=== PATIENT | female | born 1995 | race Caucasian/White ===

== ENCOUNTER 2016-09-07 08:04 | Emergency (ER) | payer OTHER ==
[~2016-09-07 08:04] MED LIST: NO MEDICATIONS; ZOFRAN ODT4 MG PO
[2016-09-07 08:15] LABS: URINE SOURCE CLEAN CATCH
[2016-09-07 08:20] LABS: URINE APPEARANCE CLEAR; URINE BILIRUBIN NEG (NEG); URINE BLOOD NEG (NEG); URINE COLOR YELLOW; URINE GLUCOSE NEG (NEG); URINE KETONE NEG (NEG); URINE LEUKOCYTE ESTERASE NEG (NEG); URINE NITRATE NEG (NEG); URINE PH 6.5 (5-8); URINE PROTEIN NEG (NEG); URINE SPECIFIC GRAVITY 1.018 (1.003-1.035)
[2016-09-07 08:22] LABS: BASOPHIL% 0.7 % (0-2.5); EOSINOPHIL# 0.1 X10e3 (0-0.7); EOSINOPHIL% 1.7 % (0.0-7.0); HEMATOCRIT 40.2 % (35.0-45.0); HEMOGLOBIN 13.1 gm/dL (12.0-16.0); LYMPHOCYTE# 1.7 X10e3 (1.0-3.5); LYMPHOCYTE% 41.3 % (17.0-45.0); MEAN CELL VOLUME 86.1 FL (83-96); MEAN CORPUSCULAR HGB CONC 32.6 g/dL (30-36); MEAN PLATELET VOLUME 7.5 FL (6.5-11.5); MONOCYTE# 0.3 X10e3 (0-1.0); MONOCYTE% 7.2 % (3.0-12.0); NEUTROPHIL# 2.1 X10e3 (1.5-7.1); NEUTROPHIL% 49.1 % (40-75); PLATELET COUNT 183 X10e3 (140-420); RED BLOOD COUNT 4.67 X10e (3.90-5.30); RED CELL DISTRIBUTION WIDTH 13.7 % (11.0-15.5); WHITE BLOOD COUNT 4.2 X10e3 (4.0-10.5)
[2016-09-07 08:23] LABS: CULTURE INDICATED? NO
[2016-09-07 08:25] LABS: DIFF IND NO
[2016-09-07 08:48] LABS: ALBUMIN SERUM 4.7 g/dL (3.5-5.0); BILIRUBIN, DIRECT 0.1 mg/dL (0.0-0.2); BILIRUBIN,INDIRECT 0.7 mg/dL (0.0-0.9); BILIRUBIN,TOTAL 0.8 mg/dL (0.2-2.0); BUN/CREATININE RATIO 15.71; CREATININE SERUM 0.7 mg/dL (0.6-1.4); GLOM FILT RATE Estimated 124.7 mL/min (>60); POTASSIUM 3.5 mmol/L (3.5-5.1); PROTEIN TOTAL SERUM 7.3 g/dL (6.0-8.3)
== END 2016-09-07 09:39 | disposition home or self-care (01) ==
LOC: CED 08:04
PROVIDERS: Nurse Practitioner
DX: R11.2 Nausea with vomiting, unspecified (principal); F17.200 Nicotine dependence, unspecified, uncomplicated; Z98.890 Other specified postprocedural states; Z79.899 Other long term (current) drug therapy
CPT/HCPCS: 36415; 80048; 80076; 81003; 83690; 84703; 85025; 96361; 96374; 99284; J2405

== ENCOUNTER 2016-10-06 13:53 | Emergency (ER) | payer OTHER ==
--- NOTE | ~2016-10-06 | CR72 ---
[facility] A Service of [facility] RADIOLOGY TEXT RESULTS PATIENT: VEENA BARNHART LOCATION: [facility] : 96 UNIT #: [id number] AGE: [address]: Beth Ogden SEX: F ORDER DR: [id number] [place], [place] [address] [id number] E MR#: [id number] Acc #: [id number] NAME: VEENA BARNHART : 1995 SEX: F STUDY DATE/TIME: 10/06/2016 14:35 UNIT: [facility] ROOM: STUDY DESCRIPTION: CR Chest Single View Portable Attending Physician: Beth Ogden Pa-C Ordering Physician: Beth Ogden Pa-C Primary Care Physician: Ashley Lopez Aprn MEDICAL IMAGING REPORT This report is preliminary unless electronic signature is present EXAM AP portable chest. DATE 10/06/2016 HISTORY Shortness of breath and cough for 5 days. History of smoking, quit one month ago. COMPARISON AP portable chest, 11/02/2015 FINDINGS Lungs appear clear. Heart size is within normal limits. No pleural effusion, pneumothorax or acute osseous abnormalities are identified. IMPRESSION 1. No acute cardiopulmonary findings. Dictated by... Shaina Salazar M.D. THIS IS AN ELECTRONICALLY VERIFIED REPORT Shaina Salazar M.D. at 10/07/2016 10:05 AM [facility]/oleg TD: 10/06/2016 19:11 JOB #: [id number] MEDICAL IMAGING REPORT [facility] A Service of [facility] RADIOLOGY TEXT RESULTS PATIENT: VEENA BARNHART LOCATION: [place] : 96 UNIT #: [id number] AGE: [address]: Beth Ogden SEX: F ORDER DR: Page 1 of 1 COPY
== END 2016-10-06 15:32 | disposition home or self-care (01) ==
LOC: CFTX 13:53 → CED 13:53 → CFTX 15:27
DX: T65.91XA Toxic effect of unspecified substance, accidental (unintentional), initial encounter (principal); Z79.899 Other long term (current) drug therapy
CPT/HCPCS: 71010; 99283

== ENCOUNTER 2016-10-13 02:59 | Emergency (ER) | payer OTHER ==
--- NOTE | ~2016-10-13 | CR150 ---
[facility] A Service of [facility] & [facility] RADIOLOGY TEXT RESULTS PATIENT: VEENA BARNHART LOCATION: [facility] : 96 UNIT #: [id number] AGE: [address]: MONTRELL AKHTAR APRN SEX: F ORDER DR: [id number] [facility] [address] 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 TECHNIQUE Two-view left hip series. FINDINGS The examination is negative. No fracture, dislocation, arthropathy or other osseous abnormality is demonstrated. IMPRESSION Negative left hip series. Dictated by... Wilian Guardado M.D. THIS IS AN ELECTRONICALLY VERIFIED REPORT Wilian Guardado M.D. at 10/13/2016 5:52 AM B[facility]ANY/cheikh TD: 10/13/2016 04:50 JOB #: [id number] MEDICAL IMAGING REPORT Page 1 of 1 COPY
== END 2016-10-13 05:30 | disposition home or self-care (01) ==
LOC: CED 02:59
DX: S70.02XA Contusion of left hip, initial encounter (principal); F32.9 Major depressive disorder, single episode, unspecified; F17.210 Nicotine dependence, cigarettes, uncomplicated; W19.XXXA Unspecified fall, initial encounter
CPT/HCPCS: 73502; 84703; 99283

== ENCOUNTER 2016-10-14 23:50 | Emergency (ER) | payer OTHER ==
--- NOTE | ~2016-10-14 | CR173 ---
[facility] A Service of [facility] & [facility] RADIOLOGY TEXT RESULTS PATIENT: VEENA BARNHART LOCATION: [facility] : 96 UNIT #: [id number] AGE: [address]: Tracy Gallagher APRN SEX: F ORDER DR: [id number] [facility] [address] [place], [place] [address] [id number] E MR#: [id number] Acc #: [id number] NAME: VEENA BARNHART : 1995 SEX: F STUDY DATE/TIME: 10/15/2016 0:26 UNIT: [facility] ROOM: STUDY DESCRIPTION: CR Knee 3 Views Rt Attending Physician: Tracy Gallagher A.P.R.N. Ordering Physician: Tracy Gallagher A.P.R.N. Primary Care Physician: Ashley Lopez Aprn MEDICAL IMAGING REPORT This report is preliminary unless electronic signature is present EXAM Right knee, 10/15/16 HISTORY 21-year-old female in the ED complaining of right knee pain and tingling beginning earlier today after a twisting injury and fall. Past history of knee surgery. TECHNIQUE Three-view right knee series. FINDINGS No fracture, dislocation or other acute osseous abnormality is demonstrated. Postop changes ACL graft repair surgery. No visible joint effusion. IMPRESSION 1. No acute osseous abnormality. No visible joint effusion. 2. Postop changes ACL graft repair surgery. Dictated by... Wilian Guardado M.D. THIS IS AN ELECTRONICALLY VERIFIED REPORT Wilian Guardado M.D. at 10/15/2016 6:04 AM [facility]/elmer TD: 10/15/2016 01:31 JOB #: [id number] MEDICAL IMAGING REPORT Page 1 of 1 COPY
== END 2016-10-15 01:46 | disposition home or self-care (01) ==
LOC: CED 23:50
DX: S83.91XA Sprain of unspecified site of right knee, initial encounter (principal); F32.9 Major depressive disorder, single episode, unspecified; F17.210 Nicotine dependence, cigarettes, uncomplicated; X50.1XXA Overexertion from prolonged static or awkward postures, initial encounter; Y92.410 Unspecified street and highway as the place of occurrence of the external cause
CPT/HCPCS: 73562; 99283

== ENCOUNTER 2016-10-22 15:05 | Emergency (ER) | payer OTHER ==
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
[2016-10-22 18:31] LABS: URINE SOURCE CLEAN CATCH
[2016-10-22 18:41] LABS: URINE APPEARANCE CLEAR; URINE BILIRUBIN NEG (NEG); URINE BLOOD NEG (NEG); URINE COLOR YELLOW; URINE GLUCOSE NEG (NEG); URINE KETONE NEG (NEG); URINE LEUKOCYTE ESTERASE NEG (NEG); URINE NITRATE NEG (NEG); URINE PH 7.5 (5-8); URINE PROTEIN NEG (NEG); URINE SPECIFIC GRAVITY 1.022 (1.003-1.035); URINE UROBILINOGEN 0.2 MG/DL (NEG)
[2016-10-22 18:48] LABS: CULTURE INDICATED? NO
== END 2016-10-22 21:21 | disposition home or self-care (01) ==
LOC: CFTX 15:05 → CED 15:05 → CFTX 17:48
PROVIDERS: Nurse Practitioner
DX: S13.4XXA Sprain of ligaments of cervical spine, initial encounter (principal); S23.3XXA Sprain of ligaments of thoracic spine, initial encounter; S70.02XA Contusion of left hip, initial encounter; N20.0 Calculus of kidney; F17.210 Nicotine dependence, cigarettes, uncomplicated; V49.00XA Driver injured in collision with unspecified motor vehicles in nontraffic accident, initial encounter; Z88.8 Allergy status to other drugs, medicaments and biological substances
CPT/HCPCS: 70450; 72072; 72125; 73502; 74176; 81003; 84703; 96372; 99284; J1885

== ENCOUNTER 2016-10-23 22:04 | Emergency (ER) | payer OTHER ==
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
[2016-10-23 22:22] LABS: URINE SOURCE CLEAN CATCH
[2016-10-23 22:33] LABS: URINE APPEARANCE CLOUDY; URINE BILIRUBIN NEG (NEG); URINE BLOOD 3+ (NEG); URINE COLOR YELLOW; URINE GLUCOSE NEG (NEG); URINE KETONE TRACE (NEG); URINE LEUKOCYTE ESTERASE 1+ (NEG); URINE NITRATE NEG (NEG); URINE PH 5.5 (5-8); URINE PROTEIN 2+ (NEG)
[2016-10-23 22:36] LABS: CULTURE INDICATED? YES; URBCS1 AUWI INNUM /[HPF] (0-2); URINE BACTERIA AUWI NEG (NEGATIVE); URINE SQUAMOUS EPITHELIAL CELL NONE SEEN /[HPF]
[2016-10-23 23:03] LABS: BASOPHIL% 0.4 % (0-2.5); EOSINOPHIL% 0.1 % (0.0-7.0); HEMATOCRIT 37.3 % (35.0-45.0); HEMOGLOBIN 12.3 gm/dL (12.0-16.0); LYMPHOCYTE# 1.1 X10e3 (1.0-3.5); LYMPHOCYTE% 14.1 % (17.0-45.0); MEAN CELL VOLUME 85.7 FL (83-96); MEAN CORPUSCULAR HEMOGLOBIN 28.3 PG (28-34); MEAN PLATELET VOLUME 7.7 FL (6.5-11.5); MONOCYTE# 0.4 X10e3 (0-1.0); MONOCYTE% 4.5 % (3.0-12.0); NEUTROPHIL# 6.5 X10e3 (1.5-7.1); NEUTROPHIL% 80.9 % (40-75); PLATELET COUNT 225 X10e3 (140-420); RED BLOOD COUNT 4.35 X10e (3.90-5.30); RED CELL DISTRIBUTION WIDTH 13.6 % (11.0-15.5)
[2016-10-23 23:04] LABS: DIFF IND NO
[2016-10-23 23:25] LABS: ALBUMIN SERUM 4.7 g/dL (3.5-5.0); BILIRUBIN,TOTAL 1.2 mg/dL (0.2-2.0); BUN/CREATININE RATIO 18.88; CREATININE SERUM 0.9 mg/dL (0.6-1.4); GLOM FILT RATE Estimated 92.1 mL/min (>60); POTASSIUM 3.3 mmol/L (3.5-5.1); PROTEIN TOTAL SERUM 7.4 g/dL (6.0-8.3)
== END 2016-10-24 02:00 | disposition home or self-care (01) ==
LOC: CED 22:04
PROVIDERS: Emergency Medicine
DX: R31.9 Hematuria, unspecified (principal); R10.9 Unspecified abdominal pain; F32.9 Major depressive disorder, single episode, unspecified; Z90.49 Acquired absence of other specified parts of digestive tract; V49.40XA Driver injured in collision with unspecified motor vehicles in traffic accident, initial encounter
CPT/HCPCS: 36415; 74177; 80053; 81003; 85025; 87086; 96365; 96375; 96376; 99284; J0696; J1885; J2270; J2405; Q9967

== ENCOUNTER 2016-11-04 01:56 | Emergency (ER) | payer OTHER ==
--- NOTE | ~2016-11-04 | CR173 ---
[facility] A Service of [facility] RADIOLOGY TEXT RESULTS PATIENT: VEENA BARNHART LOCATION: [facility] : 96 UNIT #: [id number] AGE: [address]: MONTRELL AKHTAR APRN SEX: F ORDER DR: [id number] [address] [place], [place] [address] [id number] E MR#: [id number] Acc #: [id number] NAME: VEENA BARNHART : 1995 SEX: F STUDY DATE/TIME: 11/04/2016 3:26 UNIT: [facility] ROOM: STUDY DESCRIPTION: CR Knee 3 Views Rt Attending Physician: Montrell Akhtar Aprn Ordering Physician: Montrell Akhtar Aprn Primary Care Physician: Ashley Lopez Aprn MEDICAL IMAGING REPORT This report is preliminary unless electronic signature is present EXAM Right knee series INDICATIONS Right knee pain after a fall today. PROCEDURE Three views of the right knee COMPARISON 10/15/2016 FINDINGS No fracture or dislocation. No joint effusion. ACL reconstruction hardware is stable. IMPRESSION No acute findings. Dictated by... Karlos Mathew M.D. THIS IS AN ELECTRONICALLY VERIFIED REPORT Karlos Mathew M.D. at 11/04/2016 10:26 PM GAYATRID/cheikh TD: 11/04/2016 04:18 JOB #: [id number] MEDICAL IMAGING REPORT [facility] A Service of [facility] RADIOLOGY TEXT RESULTS PATIENT: VEENA BARNHART LOCATION: [facility] : 96 UNIT #: [id number] AGE: [address]: MONTRELL AKHTAR APRN SEX: F ORDER DR: Page 1 of 1 COPY
--- NOTE | ~2016-11-04 | CR127 ---
[facility] A Service of [facility] & [facility] RADIOLOGY TEXT RESULTS PATIENT: VEENA BARNHART LOCATION: [facility] : 96 UNIT #: [id number] AGE: [address]: MONTRELL AKHTAR APRN SEX: F ORDER DR: [id number] [facility] [address] [place], [place] [address] [id number] E MR#: [id number] Acc #: [id number] NAME: VEENA BARNHART : 1995 SEX: F STUDY DATE/TIME: 11/04/2016 3:29 UNIT: [facility] ROOM: STUDY DESCRIPTION: CR Foot Complete Min 3 View Rt Attending Physician: Montrell Akhtar Aprn Ordering Physician: Montrell Akhtar Aprn Primary Care Physician: Ashley Lopez Aprn MEDICAL IMAGING REPORT This report is preliminary unless electronic signature is present EXAM Right foot series INDICATIONS Right foot pain after a fall today. PROCEDURE 3 views of the right foot COMPARISON None. FINDINGS No fracture or dislocation. IMPRESSION No acute findings. Dictated by... Karlos Mathew M.D. THIS IS AN ELECTRONICALLY VERIFIED REPORT Karlos Mathew M.D. at 11/04/2016 10:26 PM MIKIE/cheikh TD: 11/04/2016 04:17 JOB #: [id number] MEDICAL IMAGING REPORT Page 1 of 1 COPY
== END 2016-11-04 05:48 | disposition home or self-care (01) ==
LOC: CED 01:56
DX: S84.91XA Injury of unspecified nerve at lower leg level, right leg, initial encounter (principal); S80.01XA Contusion of right knee, initial encounter; F32.9 Major depressive disorder, single episode, unspecified; F17.210 Nicotine dependence, cigarettes, uncomplicated; W50.3XXA Accidental bite by another person, initial encounter; Y92.009 Unspecified place in unspecified non-institutional (private) residence as the place of occurrence of the external cause
CPT/HCPCS: 73562; 73630; 96372; 99284; J1885

== ENCOUNTER 2016-11-23 21:09 | Emergency (ER) | payer OTHER ==
[~2016-11-23] VITALS: Ht 167.6 cm; Wt 49.9 kg
--- NOTE | ~2016-11-23 | CR126 ---
[facility] A Service of [facility] RADIOLOGY TEXT RESULTS PATIENT: VEENA BARNHART LOCATION: [facility] : 96 UNIT #: [id number] AGE: [address]: Zac Reynoso DO SEX: F ORDER DR: [id number] [facility] [address] [place], [place] [address] [id number] E MR#: [id number] Acc #: [id number] NAME: VEENA BARNHART : 1995 SEX: F STUDY DATE/TIME: 11/23/2016 21:26 UNIT: [facility] ROOM: STUDY DESCRIPTION: CR Foot Complete Min 3 View Lt Attending Physician: Zac Reynoso D.O. Ordering Physician: Ed Doctor [id number] [facility] Primary Care Physician: Ashely Lopez Aprn MEDICAL IMAGING REPORT This report is preliminary unless electronic signature is present EXAM Left foot 11/23/2016 HISTORY 21-year-old female with left foot pain after dancing in high heels and twisting foot tonight. COMPARISON None. FINDINGS Three views of the left foot demonstrate no acute fracture or dislocation. Soft tissues are unremarkable. IMPRESSION Unremarkable left foot. Dictated by... Malik Choi M.D. THIS IS AN ELECTRONICALLY VERIFIED REPORT Malik Choi M.D. at 11/24/2016 2:43 PM KATHY/tamar TD: 11/24/2016 08:32 JOB #: [id number] MEDICAL IMAGING REPORT Page 1 of 1 COPY
== END 2016-11-23 23:05 | disposition home or self-care (01) ==
LOC: CED 21:09
DX: S93.402A Sprain of unspecified ligament of left ankle, initial encounter (principal); F32.9 Major depressive disorder, single episode, unspecified; Z88.8 Allergy status to other drugs, medicaments and biological substances; X50.1XXA Overexertion from prolonged static or awkward postures, initial encounter; Y92.69 Other specified industrial and construction area as the place of occurrence of the external cause
CPT/HCPCS: 29405; 73630; 96372; 99283; J1885

== ENCOUNTER 2017-01-11 21:09 | Emergency (ER) | payer OTHER ==
[~2017-01-11] VITALS: Ht 167.6 cm; Wt 50.3 kg
== END 2017-01-13 20:30 | disposition left against medical advice (07) ==
LOC: CED 21:09
DX: Z53.21 Procedure and treatment not carried out due to patient leaving prior to being seen by health care provider (principal)